=== PATIENT | male | born 1935 | race Caucasian/White ===

== ENCOUNTER 2016-12-06 07:38 | Emergency (ER) | payer MEDICARE, OTHER ==
--- NOTE | 2016-12-06 08:14 | EDM.PDOC ---
ED HPI GENERAL MEDICAL PROBLEM - General Chief Complaint: Upper Extremity Injury/Pain Stated Complaint: Right shoulder pain after a fall at home Time Seen by Provider: 12/06/16 07:50 Source of Information: Reports: Patient History Limitations: Reports: No Limitations - History of Present Illness INITIAL COMMENTS - FREE TEXT/NARRATIVE: 81 yo wm presents to ER complaining of right shoulder pain after a fall at home. Pt reports he was on a step stool and lost his balance. Pt reports reaching for something with his right arm to prevent the fall causing pain to his right shoulder. Pt denies any other injury. Pt denies head or neck pain, denies back pain. 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 Onset: Today Onset Date: 12/06/16 Onset Time: 07:00 Duration: Hour(s): Location: Reports: Upper Extremity, Right Quality: Reports: Ache Severity: Severe Improves with: Reports: Rest Worsens with: Reports: Movement Associated Symptoms: Reports: No Other Symptoms Review of Systems - Review of Systems Review Of Systems: See Below Constitutional: Reports: No Symptoms Eyes: Reports: No Symptoms Ears: Reports: No Symptoms Nose: Reports: No Symptoms Mouth/Throat: Reports: No Symptoms Respiratory: Reports: No Symptoms Cardiovascular: Reports: No Symptoms GI/Abdominal: Reports: No Symptoms Genitourinary: Reports: No Symptoms Musculoskeletal: Reports: Shoulder Pain (right) Skin: Reports: No Symptoms Neurological: Reports: No Symptoms Psychiatric: Reports: No Symptoms Trauma Exam - Physical Exam Exam: See Below Exam Limited By: No Limitations General Appearance: Reports: Alert, WD/WN, No Apparent Distress Head: Reports: Atraumatic, Normocephalic Throat/Mouth: Reports: Normal Inspection, Normal Lips, Normal Teeth, Normal Gums , Normal Oropharynx, Normal Voice, No Airway Compromise Neck: Reports: Non-Tender, Full Range of Motion, Normal Alignment, Normal Inspection Respiratory Exam: Reports: No Respiratory Distress, Lungs Clear, Normal Breath Sounds Cardiovascular: Reports: Normal Peripheral Pulses GI/Abdominal: Reports: Normal Bowel Sounds, Soft, Non-Tender, No Organomegaly, No Distention, No Abnormal Bruit, No Mass Back: Reports: Full Range of Motion, Normal Inspection, Non-Tender Extremities: Pain with Movement Neurologic: Reports: metal tester II-XII nml As Tested, No Motor/Sensory Deficits, Alert , Normal Mood/Affect, Oriented x 3 Skin: Reports: Normal Color, Warm/Dry - Devante Coma Score Best Eye Response (Parker): (4) Open Spontaneously Best Verbal Response (Parker): (5) Oriented Best Motor Response (Devante): (6) Obeys Commands ED TRAUMA EXTREMITY PROCEDURES - Joint Reduction Site: shoulder (R) Sedation: conscious sedation Pre-procedure NV status: normal Post-procedure NV status: normal Technique: traction/counter traction Number of Attempts: 2 Post-reduction imaging: unacceptably reduced, fracture seen Course - Orders/Labs/Meds Orders: Active Orders 24 hr Category Date Time Status Shoulder Comp Rt [CR] Routine Exams 12/06/16 Taken - Radiology Interpretation Free Text/Narrative:: right shoulder- anterior shoulder dislocation with hill-sachs and bankart lesion Departure - Departure Time of Disposition: 09:01 Disposition: DC/Tfer to Acute Hospital 02 Condition: fair Clinical Impression: Anterior shoulder dislocation Qualifiers: Encounter type: initial encounter Laterality: right Qualified Code(s): S43.014A - Anterior dislocation of right humerus, initial encounter Shoulder fracture, right Qualifiers: Encounter type: initial encounter Fracture type: closed Qualified Code(s): S42.91XA - Fracture of right shoulder girdle, part unspecified, initial encounter for closed fracture - Discharge Information Referrals: PCP,Unobtain [Primary Care Provider] - Forms: Interfacility Transfer EMTALA - My Orders Last 24 Hours: My Active Orders 12/06/16 Shoulder Comp Rt [CR] Routine - Assessment/Plan Last 24 Hours: My Active Orders 12/06/16 Shoulder Comp Rt [CR] Routine Assessment:: 1. anterior shoulder dislocation with hill sach and bankhart lesion Plan: 1. unsuccessful anterior shoulder reduction 2. discussed case with Dr Mcguire ([facility])- accepted transfer for possible surgical intervention
[2016-12-06] MEDS ORDERED: Midazolam 1 MG/ML 2 ML SDV IV ONE ×2 (08:40→11:45)
[2016-12-06] MEDS ORDERED: Propofol 200 MG/20 ML SDV IV ONE ×2 (08:40→14:26)
[2016-12-06] MEDS ORDERED: Ondansetron 4 MG/2 ML SDV ONE (14:26)
[2016-12-06] MEDS ORDERED: Ondansetron 4 MG/2 ML SDV IVPUSH ONE (15:26)
== END 2016-12-06 10:30 ==
LOC: KA.ED 07:38
DX: S42.91XA Fracture of right shoulder girdle, part unspecified, initial encounter for closed fracture (principal); S43.014A Anterior dislocation of right humerus, initial encounter; W08.XXXA Fall from other furniture, initial encounter
CPT/HCPCS: 01620; 23650; 73030; 99282; 99285; J2250; J2704